=== PATIENT | male | born 1970 | race Caucasian/White ===

== ENCOUNTER 2023-02-25 13:16 | Emergency (ER) | payer MEDICAID ==
[~2023-02-25] VITALS: Ht 165.1 cm; Wt 86.0 kg
[2023-02-25 13:31] VITALS: BP 207/135; PULSE 95; RESP 20; TEMP 98.7; O2SAT 97
[2023-02-25] MEDS ORDERED: CEPH500C2 MT (15:29)
[2023-02-25] MEDS ORDERED: IBUP-2029 MT (15:29)
== END 2023-02-25 16:39 | disposition home or self-care (01) ==
LOC: ER 13:16
DX: S60.022A Contusion of left index finger without damage to nail, initial encounter (principal); I10 Essential (primary) hypertension; X58.XXXA Exposure to other specified factors, initial encounter; Y93.89 Activity, other specified; Y92.89 Other specified places as the place of occurrence of the external cause; Y99.8 Other external cause status
CPT/HCPCS: 73130; 99283